=== PATIENT | female | born 1970 | race Caucasian/White ===

== ENCOUNTER 2019-08-02 18:16 | Emergency (ER) | payer OTHER ==
[~2019-08-02] VITALS: Ht 177.8 cm; Wt 71.2 kg
--- NOTE | 2019-08-02 20:54 | NUR ---
puncture wounds to LLE s/p dog bite this afternoon. REPORTS PAIN OF 8/10. WOUNDS ARE CLEAN AND DRY. DENIES SOB, DIZZINESS, WEAKNESS, N/V. AOX4, AMBULATORY, VSS, RR EVEN AND UNLABORED ON RA. NO ACUTE DISTRESS NOTED. MADE COMFORTABLE AND READY FOR EVAL.
[2019-08-02] MEDS ORDERED: TDAP [DIPH/PERTUSSIS/TET] 0.5 ML VIAL IM ONE ×2 (21:30)
[2019-08-02] MEDS ORDERED: IBUPROFEN 400 MG TABLET ONE (21:30)
[2019-08-02] MEDS ORDERED: AMOX/CLAVULANATE 875 MG TABLET PO ONE (21:30)
[2019-08-02] MEDS ORDERED: IBUPROFEN 400 MG TABLET PO ONE (21:30)
[2019-08-02] MEDS ORDERED: AMOX/CLAVULANATE 875 MG TABLET ONE (21:30)
--- NOTE | 2019-08-02 21:44 | NUR ---
Patient discharged to home in stable condition. Written and verbal after care instructions given. Patient verbalizes understanding of instruction.
[2019-08-02 22:23] VITALS: BP 150/72
== END 2019-08-02 21:45 | disposition home or self-care (01) ==
LOC: ER 18:21
DX: S81.832A Puncture wound without foreign body, left lower leg, initial encounter (principal); W54.0XXA Bitten by dog, initial encounter; Y93.89 Activity, other specified; Y92.89 Other specified places as the place of occurrence of the external cause; Y99.8 Other external cause status
CPT/HCPCS: 90471; 90715; 99283; A6403